=== PATIENT | male | born 1965 | race Caucasian/White ===

== ENCOUNTER 2017-03-15 12:27 | Emergency (ER) | payer OTHER ==
[~2017-03-15] VITALS: Ht 182.9 cm; Wt 127.0 kg
[2017-03-15 12:37] VITALS: BP 161/102
[2017-03-15] MEDS ORDERED: IV NORMAL SALINE 1000ML BAG 1,000 ML IV ONE (13:30)
[2017-03-15 13:44] LABS: BASO # 0.1 x10^3/uL (0.0-0.2); BASO % 1 % (0-3); CREATININE 1.1 mg/dL (0.7-1.3); EOS % 3 % (0-3); GFR 70.3; HEMATOCRIT 47.1 % (39.0-53.0); HEMOGLOBIN 15.8 g/dL (13.0-17.5); LYMPH % 29 % (24-48); MEAN CORPUSCULAR HEMOGLOBIN 31 pg (25-35); MEAN CORPUSCULAR HGB CONC 34 g/dL (31-37); MEAN CORPUSCULAR VOLUME 91 fL (79-100); MONO % 6 % (0-9); NEUT % 61 % (31-73); PLATELET COUNT 259 x10^3/uL (140-400); POTASSIUM 3.9 mmol/L (3.5-5.1); RED BLOOD COUNT 5.16 x10^6/uL (4.30-5.70); WHITE BLOOD COUNT 10.4 x10^3/uL (4.0-11.0)
--- NOTE | 2017-03-15 14:20 | PHYS DOC ---
Past Medical History Past Medical History: Anxiety, Diabetes-Type II, Hypertension Past Surgical History: Other Additional Past Surgical Histo: 'you have to ask hitesh' Alcohol Use: None Drug Use: None Adult General Chief Complaint Chief Complaint: ALTERED MENTAL STATUS HPI HPI Patient is a 52 year old male who presents with near syncope. The patient states he was at work, felt exhausted, ultimately came here & experienced near syncopal episode with darkening of his visual mckenzie & ringing in his ears. He denies actual loss of consciousness, feels better now lying supine. Denies headache, chest pain, palpitations, shortness of breath, extremity numbness/ weakness, calf pain/swelling. 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 History of DM & HTN. Review of Systems Review of Systems Constitutional: Denies fever or chills, reports decreased energy & near syncope Eyes: Denies change in visual acuity HENT: Denies nasal congestion or sore throat Respiratory: Denies cough or shortness of breath Cardiovascular: Denies chest pain or edema GI: Denies abdominal pain, nausea, vomiting, bloody stools or diarrhea Musculoskeletal: Denies back pain or joint pain Integument: Denies rash or skin lesions Neurologic: Denies headache, focal weakness or sensory changes Current Medications Current Medications Current Medications Medications (Trade) Dose Ordered Sig/Evy Start Time Stop Time Status Last Admin Dose Admin Sodium Chloride (Iv Sodium Chloride 0.9% 1000ml Bag) 1,000 ml @ 1,000 mls/hr 1X ONCE 03/15/17 13:30 03/15/17 14:29 DC 03/15/17 13:31 1,000 MLS/HR Allergies Allergies Allergies Coded Allergies Type Severity Reaction Last Updated Verified acetaminophen Allergy Intermediate 03/15/17 Yes propoxyphene Allergy Intermediate 03/15/17 Yes Physical Exam Physical Exam Constitutional: obese, no acute distress, non-toxic appearance. HENT: Normocephalic, atraumatic, bilateral external ears normal, oropharynx moist, nose normal. Eyes: PERRLA, EOMI, conjunctiva normal, no discharge. Neck: supple, no stridor. Cardiovascular: RRR, no murmurs, no edema. Lungs & Thorax: LCTAB, no wheezing, no respiratory distress. Abdomen: soft, nontender, nondistended. Skin: Warm, dry, no erythema, no rash. Back: No tenderness. Extremities: No tenderness, no edema. no calf tenderness or swelling. Neurologic: Alert and oriented X 3, CN2-12 grossly intact, symmetric strength/ sensation to UE & LE, no focal deficits noted. Psychologic: Affect normal, judgement normal, mood normal. Current Patient Data Vital Signs Vital Signs Date Time Temp Pulse Resp B/P Pulse Ox O2 Delivery O2 Flow Rate FiO2 03/15/17 12:37 98.2 65 18 161/102 90 Room Air 98.2 Lab Values Laboratory Tests Test 03/15/17 13:20 White Blood Count 10.4x10^3/uL (4.0-11.0) Red Blood Count 5.16x10^6/uL (4.30-5.70) Hemoglobin 15.8g/dL (13.0-17.5) Hematocrit 47.1% (39.0-53.0) Mean Corpuscular Volume 91fL (79-100) Mean Corpuscular Hemoglobin 31pg (25-35) Mean Corpuscular Hemoglobin Concent 34g/dL (31-37) Red Cell Distribution Width 13.0% (11.5-14.5) Platelet Count 259x10^3/uL (140-400) Neutrophils (%) (Auto) 61% (31-73) Lymphocytes (%) (Auto) 29% (24-48) Monocytes (%) (Auto) 6% (0-9) Eosinophils (%) (Auto) 3% (0-3) Basophils (%) (Auto) 1% (0-3) Neutrophils # (Auto) 6.3x10^3uL (1.8-7.7) Lymphocytes # (Auto) 3.0x10^3/uL (1.0-4.8) Monocytes # (Auto) 0.7x10^3/uL (0.0-1.1) Eosinophils # (Auto) 0.3x10^3/uL (0.0-0.7) Basophils # (Auto) 0.1x10^3/uL (0.0-0.2) Sodium Level 143mmol/L (136-145) Potassium Level 3.9mmol/L (3.5-5.1) Chloride Level 104mmol/L (98-107) Carbon Dioxide Level 29mmol/L (21-32) Anion Gap 10 (6-14) Blood Urea Nitrogen 13mg/dL (8-26) Creatinine 1.1mg/dL (0.7-1.3) Estimated GFR (Cockcroft-Gault) 70.3 Glucose Level 105mg/dL (70-99) H Calcium Level 9.0mg/dL (8.5-10.1) Troponin I Quantitative < 0.017ng/mL (0.000-0.055) AQ-Anv-I-Type Natriuretic Peptide 20pg/mL (0-124) Laboratory Tests 03/15/17 13:20 Laboratory Tests 03/15/17 13:20 EKG EKG interpreted by me: NSR rate 65, no acute ST/T wave changes, normal intervals, no ectopy.[] Radiology/Procedures Radiology/Procedures [] Course & Med Decision Making Course & Med Decision Making Pertinent Labs and Imaging studies reviewed. (See chart for details) The patient presents with near syncope & states he feels anxious. BP slightly elevated here. Neurologically intact with no evidence of arrhythmia on secured entrance monitor. Initially he stated he wanted to go home with further testing but ultimately decided to stay when I told him that I could not "clear" him to return to work without appropriate evaluation. He decided to stay. Labs & EKG show no acute process. Discussed results, important to follow up for further testing if symptoms do not improve or recur. Rest, PO hydration, eat regular meals, sleep hygiene. Follow up with PCP in 2-3 days for recheck. Come back for severe headache, severe chest pain/shortness of breath/palpitations, focal neuro deficit, any otherwise worsening condition. Provided work note, okay to return to duty as physically able. Discharged home in stable condition. [] Dragon Disclaimer Dragon Disclaimer This electronic medical record was generated, in whole or in part, using a voice recognition dictation system. Departure Departure Impression: Primary Impression: Near syncope Additional Impression: Essential hypertension Disposition: HOME, SELF-CARE Condition: STABLE Referrals: PETRA OROPEZA MD Patient Instructions: Near-Syncope, [id number] Additional Instructions: You were seen in the emergency department today for near fainting episode. Please rest, drink fluids, eat regular meals, get a good night's sleep. Follow up with your doctor in 2-3 days. It's okay to go back to work if you feel better. Come back for severe headache, severe chest pain or shortness of breath , palpitations, trouble moving arms or legs, any otherwise worsening condition. Problem Qualifiers MURALI SANTOYO MD Mar 15, 2017 14:20
--- NOTE | 2017-03-15 16:05 | EKG ---
[facility] [address] [place] [address] Test Date: 2017-03-15 Test Time: 12:36:04 Pat Name: ADRIANO PHOENIX Department: Room: Gender: M Product Mgr: : 1965 Requested By: MURALI SANTOYO Order Number: [id number] Reading MD: Susan Boswell Measurements Intervals [place] Rate: 65 P: 40 VA: 152 QRS: 8 QRSD: 96 T: 28 QT: 424 QTc: 446 Interpretive Statements SINUS RHYTHM QNORMAL EKG RI6.01 Unconfirmed report No previous ECG available for comparison Electronically Signed On 03-19-2017 13:12:57 CDT by Susan Boswell
== END 2017-03-15 14:45 | disposition home or self-care (01) ==
LOC: ER 12:27
DX: R55 Syncope and collapse (principal); I10 Essential (primary) hypertension; E11.9 Type 2 diabetes mellitus without complications; F41.9 Anxiety disorder, unspecified; F41.0 Panic disorder [episodic paroxysmal anxiety]; Z88.5 Allergy status to narcotic agent; Z88.6 Allergy status to analgesic agent
CPT/HCPCS: 36415; 80048; 83880; 84484; 85027; 93005; 96360; 99285; J7030

== ENCOUNTER → 2019-05-28 | Outpatient (CLI) | payer OTHER, MEDICARE ==
[2019-05-02 10:26] VITALS: BP 149/82
[~2019-05-28] MED LIST: AMLO5TAB10 PO; CITA20TA6 PO; GABA300C18 PO; GABA600T7 PO; MUPI22OI2 TP; OXCA300T19 PO; PHEN37.53 PO; QUET25TA5 PO; VENL150C6 PO; ZOLP10TA4 PO
[2019-05-28 16:11] LABS: BASO # 0.1 x10^3/uL (0.0-0.2); BASO % 1 % (0-3); EOS # 0.4 x10^3/uL (0.0-0.7); EOS % 4 % (0-3); HEMATOCRIT 43.6 % (39.0-53.0); HEMOGLOBIN 15.3 g/dL (13.0-17.5); LYMPH # 2.8 x10^3/uL (1.0-4.8); LYMPH % 27 % (24-48); MEAN CORPUSCULAR HEMOGLOBIN 32 pg (25-35); MEAN CORPUSCULAR HGB CONC 35 g/dL (31-37); MEAN CORPUSCULAR VOLUME 91 fL (79-100); MONO # 0.6 x10^3/uL (0.0-1.1); MONO % 6 % (0-9); NEUT # 6.3 x10^3uL (1.8-7.7); NEUT % 61 % (31-73); PLATELET COUNT 275 x10^3/uL (140-400); RED BLOOD COUNT 4.79 x10^6/uL (4.30-5.70); RED CELL DISTRIBUTION WIDTH 13.4 % (11.5-14.5); WHITE BLOOD COUNT 10.3 x10^3/uL (4.0-11.0)
[2019-05-28 17:41] LABS: ALBUMIN 3.9 g/dL (3.4-5.0); CALCIUM 9.3 mg/dL (8.5-10.1); GFR 77.9; POTASSIUM 3.9 mmol/L (3.5-5.1); TOTAL BILIRUBIN 0.6 mg/dL (0.2-1.0); TOTAL PROTEIN 7.9 g/dL (6.4-8.2)
== END | disposition home or self-care (01) ==
LOC: SURGPAT 13:38
PROVIDERS: ATTEND Neurological Surgery
DX: Z01.818 Encounter for other preprocedural examination (principal); M48.062 Spinal stenosis, lumbar region with neurogenic claudication; M51.16 Intervertebral disc disorders with radiculopathy, lumbar region
CPT/HCPCS: 36415; 80053; 85025; 87641

== ENCOUNTER 2019-06-11 07:12 | Day surgery (SDC) | payer OTHER, MEDICARE ==
--- NOTE | 2019-06-08 18:24 | HP ---
ADMIT DATE: 06/11/2019 PREOPERATIVE HISTORY AND PHYSICAL Kelby Hernandez RN dictating for Dr. Michael Oliva. Date of surgery will be 06/11/2019. HISTORY OF PRESENT ILLNESS: The patient is a pleasant 54-year-old who has difficulty with right-sided lower back pain and pain in his right hip and right inguinal area. The problem started in 11/2017, although he does report some problems predated that time. He says usually the pain is an ache. It can be a sharp stabbing pain, sometimes. Lying down and sleeping help him. Being up and active is painful. Recently he fell and twisted his ankle and now he is on light duty, which is giving him some relief. He has undergone epidural steroid injections earlier this year, which gave him a week or two of relief each time. PAST MEDICAL HISTORY: Cold sores, fever blisters, hypertension, psychiatric care, tonsillitis. PAST SURGICAL HISTORY: Tonsillectomy in 1979, a hernia repair in 1992, nasal surgery in 1978 and 2002, knee surgery in 2007 and 2008, elbow surgery in 2009. FAMILY HISTORY: Diabetes and hypertension. 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 . Exercises weekly by walking. Denies substance abuse. Denies tobacco use. Denies alcohol use. Drinks coffee daily. ALLERGIES: DARVON. CURRENT MEDICATIONS: Phentermine, quetiapine fumarate, venlafaxine, zolpidem, oxcarbazepine, citalopram, amlodipine, gabapentin, melatonin and ibuprofen. PHYSICAL EXAMINATION: NEUROSURGERY EXAMINATION: GENERAL APPEARANCE: Alert, pleasant, no acute distress. HEAD: Normocephalic and atraumatic. SKIN: Warm and dry. MUSCULOSKELETAL: Lumbar paraspinal muscle bulk is normal, restricted range of motion of the lumbar spine, awyg-oe-hmbxyseg tenderness of the lumbar spine with palpation, normal range of motion of the lower extremities bilaterally. EXTREMITIES: No clubbing, cyanosis, or edema. NEUROLOGIC: Alert and oriented x 3. Normal recent and remote memory. Strength 5/5 in bilateral lower extremities, sensory was intact to light touch in both lower extremities bilaterally except for decrease on the plantar surface of his right foot, reflexes were present and symmetric in bilateral lower extremities except for an absent right ankle jerk, negative straight leg raising bilaterally, normal gait. IMAGING: Reviewed. I reviewed a lumbar MRI scan. On that study, there was a moderately large central and right paracentral broad-based disk protrusion at L5-S1, which does compress the right S1 root in the right lateral recess. Additionally, at L4-L5, there is a right-sided lateral recess narrowing. ASSESSMENT: 1. Intervertebral disk disorders with radiculopathy, lumbosacral region. 2. Radiculopathy, lumbosacral region. 3. Spinal stenosis, lumbosacral region with neurogenic claudication. PLAN: At this point, he has failed conservative measures and the pain if anything is slowly increasing. My recommendation is to operate L5-S1 and perform a microdiskectomy and I did discuss this with him in detail. Because of the lateral recess stenosis present at L4-L5, I would like to operate at the level L4-L5 as I discussed with him as well. We spoke about the surgery. Risks and expected postoperative course. He would like to go ahead. We will make the arrangements. MICHAEL OLIVA MD DR: RAJ/terrence JOB#: [id number] / [id number]
[~2019-06-11] VITALS: Ht 185.4 cm; Wt 132.4 kg
[~2019-06-11 07:12] MED LIST changes: +BACITRACIN 50,000 UNIT in IV NORMAL SALINE 1000ML BAG 1,000 ML IRR ONE; +BUPIVAC MPF-EPI 0.5%-1:200000 30 ML VIAL. ONE; +GELATIN SPONGE SIZE 12-7MM SPONGE. ONE; +HYDROmorphone 2 MG/ML VIAL IV PRN; +IV RINGERS,LACTATED 1000ML 1,000 ML IV SCH; +KETOROLAC 60 MG/2 ML INJ FOR OR. ONE; +LIDOCAINE 1% PF 2 ML VIAL. ID PRN; +MORPHINE SULFATE 2 MG/ML VIAL. IV PRN; +PROCHLORPERAZINE 10 MG/2 ML VIAL. IV PRN; +THROMBIN TOPICAL 20,000 UNIT SPRAY.SYRN KIT TP ONE; +ceFAZolin SODIUM 3 GM in IV DEXTROSE 5% 100ML 100 ML IV PRN; +fentaNYL PF VIAL 100 MCG/2 ML VIAL IV PRN
[2019-06-11] MEDS ORDERED: VENL150C6 PO (07:34)
[2019-06-11] MEDS ORDERED: PROPOFOL 50 ML IV ONE (08:28)
[2019-06-11] MEDS ORDERED: DEXAMETHASONE SOD PHOS 20 MG/5 ML VIAL. ONE (08:28)
[2019-06-11] MEDS ORDERED: PROPOFOL 20 ML IV ONE (08:28)
[2019-06-11] MEDS ORDERED: REMIFENTANIL 2 MG VIAL. IV ONE (08:28)
[2019-06-11] MEDS ORDERED: ROCURONIUM 50 MG/5 ML VIAL. ONE (08:28)
[2019-06-11] MEDS ORDERED: LIDOCAINE 2% PF 5 ML VIAL. ONE (08:28)
[2019-06-11] MEDS ORDERED: ONDANSETRON PF 4 MG/2 ML VIAL. ONE (08:28)
[2019-06-11] MEDS ORDERED: fentaNYL PF VIAL 250 MCG/5 ML VIAL ONE (08:28)
[2019-06-11] MEDS ORDERED: MIDAZOLAM HCL/PF 2 MG/2 ML VIAL. ONE (08:28)
[2019-06-11] MEDS ORDERED: ePHEDrine PF IN SALINE 50 MG/10 ML SYRINGE. IV ONE (09:24)
[2019-06-11] MEDS ORDERED: DOCU-109 PO (09:43)
[2019-06-11] MEDS ORDERED: HYDR-3164 PO (09:43)
[2019-06-11] MEDS ORDERED: METH-38 PO (09:43)
--- NOTE | 2019-06-11 09:45 | DISCH ---
DISCHARGE INSTRUCTIONS Condition on Discharge Condition on Discharge: Stable Activity After Discharge Activity Instructions for Disc: Activity as tolerated, Avoid exertion Other activity instructions: no driving for a week Bathing Instructions: Shower-keep dressing dry Lifting Instructions after Dis: No heavy lifting, No pulling or pushing, Do not lift >10 pounds Diet after Discharge Diet after Discharge: Regular Additional Diet Restrictions: resume home diet Wound Incision Care Wound/Incision Care: Ice to area for comfort Other wound/incision instructi: may remove dressing in 48 hours if dry then may shower, no soaking Contacting the after DC Call your doctor for: Concerns you may have Follow-Up Follow up with: Dr. Oliva's nurse in 2 weeks [phone] ARABELLA OLIVA MD Jun 11, 2019 09:44
[2019-06-11] MEDS ORDERED: GELATIN SPONGE SIZE 12-7MM SPONGE. ONE ×2 (10:40)
[2019-06-11] MEDS ORDERED: HYDROcodone/APAP 5/325MG 1 TAB TABLET PO ONE ×2 (10:45)
[2019-06-11] MEDS ORDERED: REMIFENTANIL 1 MG VIAL. IV ONE (11:09)
[2019-06-11] MEDS ORDERED: GLYCOPYRROLATE 1 MG/5 ML VIAL. ONE (12:02)
[2019-06-11] MEDS ORDERED: NEOSTIGMINE METHYLSULFATE 5 MG/5 ML SYRINGE. ONE (12:03)
--- NOTE | 2019-06-11 12:20 | OP ---
DATE OF SURGERY: 06/11/2019 PREOPERATIVE DIAGNOSES: 1. Herniated lumbar disk, L5-S1, right. 2. Lateral recess stenosis, L4-L5 right, with right lumbar radiculopathy. POSTOPERATIVE DIAGNOSES: 1. Herniated lumbar disk, L5-S1, right. 2. Lateral recess stenosis, L4-L5 right, with right lumbar radiculopathy. OPERATION PERFORMED: Hemilaminotomy and microdiskectomy, right L5-S1. Hemilaminotomy with decompression of dura and nerve root, right L4-L5. The operation was done with EMG monitoring, fluoroscopy, microscopic dissection. SPOOLING MACHINE OPERATOR: EMILY May assisted with the surgery. She assisted with the exposure, the microdecompression and diskectomy as well as the closure. OPERATIVE INDICATIONS: The patient is a pleasant 54-year-old man who developed problems with right-sided lower back pain and right leg pain, which became severe. On imaging studies, he was found to have the above-mentioned findings, and he failed to improve significantly with epidural steroid injections. I recommended lumbar microsurgery. I spoke with him about the surgery and the risks, the technique, and he understood and wished to go ahead. DESCRIPTION OF PROCEDURE: While under general endotracheal anesthesia, the patient was positioned prone on the Ezra table. Lumbar region prepped and draped in standard fashion. YAMINI hose and AV impulse boots were applied for DVT prophylaxis. The microscope was draped. Fluoroscopy was draped and brought into the field. Monitoring was established. Ancef 3 grams was given less than 1 hour prior to initiation of the surgery. Using fluoroscopic guidance, an incision was made directly extending from the mid L4 to mid S1, dissected down to skin and subcutaneous tissue, reflected the paraspinal muscles to the right and placed a [place] microdisk retractor. I directed my attention to L5-S1, confirmed my position fluoroscopically. I drilled down through the lamina, performed a generous hemilaminotomy. I also performed a partial foraminotomy. There was considerable thickening of the ligament, and I gently worked through this peeling ligament away from superior to inferiorly and medial to lateral, and as I worked, I was able to decompress the entire region. I gently retracted the root medially. There was a large calcified disk herniation. I held the root medially with a micro nerve retractor and drilled through portions of the calcification and then performed a diskectomy with pituitary rongeurs. There was significant soft disk beneath this calcified rim, and as I worked, I was able to obtain an excellent decompression beneath the S1 root. I also performed a generous partial foraminotomy. I explored carefully, felt this area was much improved and then went up to L4-L5 in a similar fashion, drilled a very generous hemilaminotomy. There was again very thickened ligamentum flavum, and I gently worked through this, trimming thickened ligamentum flavum and exposing the dural sac and the exiting L5 root and again fully decompressed the L5 root. There was no significant disk bulging at this level, but the root was markedly compressed from hypertrophic calcified ligament, which was removed. Following this, then I explored carefully. Hemostasis was excellent. I irrigated copiously with antibiotic solution and closed the wound in layers with absorbable suture and skin was closed with 4-0 subcuticular stitch. I felt the operation went very well. ARABELLA OLIVA MD DR: RAJ/terrence JOB#: [id number] / [id number]
[2019-06-11] MEDS: fentaNYL PF VIAL 100 MCG/2 ML VIAL IV PRN ×2 (12:37→12:48)
[2019-06-11 13:50] VITALS: BP 155/86
--- NOTE | 2019-06-12 17:06 | PATHOLOGY ---
[facility] Accession Number: [id number] . 01 Material submitted: . vertebral column - LUMBAR DISC AND DECOMPRESSION . 01 Clinical history: . Lumbar stenosis with neurogenic claudication, lumbar herniated disc with radiculopathy . 02 Diagnosis: Segments of fibrocartilaginous, fibroadipose, and skeletal muscle tissue and bone, lumbar disc and decompression: - Degenerative changes of fibrocartilaginous tissue. 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 02 Comment: There is no evidence of an acute inflammatory process or malignancy. (JPM:reed or wind instrument repairer; 06/12/2019) . 02 Electronically signed: . Jeronimo Pool MD, Pathologist NPI- [id number] . 01 Gross description: . The specimen is received in formalin, labeled "Pio Gomez, lumbar disc and decompression", are multiple irregular fragments of finley-yellow and gritty tissue possibly admixed with bone spicule measuring 3.0 x 2.5 x 1.0 cm in aggregate. Representatively submitted in A1, after decalcification. ([facility]; 06/11/2019) SHS/SHS . 02 Pathologist provided ICD-10: M99.73, G95.19, M51.26, M54.10 . 02 CPT . 065641, [id number] Specimen Comment: A courtesy copy of this report has been sent to Specimen Comment: [phone], . Specimen Comment: Report sent to / DR GALLEGOS Performed at: [address], [place], [place] [id number] MD Deshaun Dickey MD Phone: [phone] Performed at: 02 [facility] [address] [place], [place] [id number] MD Jeronimo Pool MD Phone: [phone]
== END 2019-06-11 14:30 | disposition home or self-care (01) ==
LOC: SURG 07:12
PROVIDERS: ATTEND Neurological Surgery
DX: M51.16 Intervertebral disc disorders with radiculopathy, lumbar region (principal); M48.061 Spinal stenosis, lumbar region without neurogenic claudication; I10 Essential (primary) hypertension; Z98.890 Other specified postprocedural states; Z88.8 Allergy status to other drugs, medicaments and biological substances
CPT/HCPCS: 63030; 63035; 76000; 97161; A7015; J0171; J1100; J1885; J2001; J2250; J2405; J2704; J2710; J3010; J3490; J7030; J7120

== ENCOUNTER 2020-02-15 19:52 | Emergency (ER) | payer MEDICARE, OTHER ==
[~2020-02-15] VITALS: Ht 185.4 cm; Wt 136.4 kg
[~2020-02-15 19:52] MED LIST changes: -BACITRACIN 50,000 UNIT in IV NORMAL SALINE 1000ML BAG 1,000 ML IRR ONE; -BUPIVAC MPF-EPI 0.5%-1:200000 30 ML VIAL. ONE; +DOCU-109 PO; -GELATIN SPONGE SIZE 12-7MM SPONGE. ONE; +HYDR-3164 PO; -HYDROmorphone 2 MG/ML VIAL IV PRN; -IV RINGERS,LACTATED 1000ML 1,000 ML IV SCH; -KETOROLAC 60 MG/2 ML INJ FOR OR. ONE; -LIDOCAINE 1% PF 2 ML VIAL. ID PRN; +METH-38 PO; -MORPHINE SULFATE 2 MG/ML VIAL. IV PRN; -PROCHLORPERAZINE 10 MG/2 ML VIAL. IV PRN; -THROMBIN TOPICAL 20,000 UNIT SPRAY.SYRN KIT TP ONE; -ceFAZolin SODIUM 3 GM in IV DEXTROSE 5% 100ML 100 ML IV PRN; -fentaNYL PF VIAL 100 MCG/2 ML VIAL IV PRN
[2020-02-15 20:12] VITALS: BP 171/85
[2020-02-15] MEDS ORDERED: LIDOCAINE 1% PF 2 ML VIAL. INJ ONE (20:30)
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
== END 2020-02-15 21:18 | disposition home or self-care (01) ==
LOC: ER 19:52
DX: S61.421A Laceration with foreign body of right hand, initial encounter (principal); S61.512A Laceration without foreign body of left wrist, initial encounter; I10 Essential (primary) hypertension; E78.00 Pure hypercholesterolemia, unspecified; Z88.6 Allergy status to analgesic agent; Z88.8 Allergy status to other drugs, medicaments and biological substances; Y08.89XA Assault by other specified means, initial encounter; Y99.0 Civilian activity done for income or pay; Y92.69 Other specified industrial and construction area as the place of occurrence of the external cause; Y93.89 Activity, other specified
CPT/HCPCS: 12001; 99283; J3490